=== PATIENT | male | born 1965 | race African-American/Black ===

== ENCOUNTER 2023-08-30 19:41 | Inpatient (IN) | payer BC ==
[~2023-08-30] VITALS: Ht 177.8 cm; Wt 167.8 kg
[2023-08-30 20:45] VITALS: BP_SYST 188; PULSE 95; RESP 18; TEMP 97.4; O2SAT 95
[2023-08-30 21:07] LABS: BASOPHILS % (AUTO) 0.4 % (0.0-2.0); EOSINOPHILS # (AUTO) 0.2 K/uL (0.0-0.4); EOSINOPHILS % (AUTO) 1.7 % (0.0-4.0); HEMATOCRIT 43.1 % (36-54); HEMOGLOBIN 13.4 g/dL (14.0-18.0); LYMPHOCYTES # (AUTO) 1.4 K/uL (1.0-5.5); LYMPHOCYTES % (AUTO) 14.5 % (20.5-51.5); MEAN CORPUSCULAR HEMOGLOBIN 27 pg (27-31); MEAN CORPUSCULAR HGB CONC 31 % (32-36); MEAN CORPUSCULAR VOLUME 87 fL (79.0-98.0); MONOCYTES # (AUTO) 0.5 K/uL (0.0-1.0); MONOCYTES % (AUTO) 5.1 % (1.7-9.3); NEUTROPHILS # (AUTO) 7.5 K/uL (1.8-7.7); NEUTROPHILS % (AUTO) 78.3 % (40.0-70.0); PLATELET COUNT (AUTO) 261 K/uL (130-430); RED BLOOD CELL COUNT(AUTO) 4.97 MIL/uL (4.2-6.2); RED CELL DISTRIBUTION WIDTH 15.3 % (9.0-15.0); WHITE BLOOD COUNT (AUTO) 9.6 K/uL (4.8-10.8)
[2023-08-30 21:38] LABS: ALANINE AMINOTRANSFERASE 45 U/L (12-78); ANION GAP 1 (5-15); ASPARTATE AMINOTRANSFERASE 31 U/L (10-37); CALCIUM 9.1 mg/dL (8.4-11.0); CARBON DIOXIDE 33 mmol/L (23-29); CHLORIDE 102 mmol/L (98-107); CREATININE 1.18 mg/dL (0.55-1.30); GFR AFRICAN AMERICAN 82 mL/min (>90); GLUCOSE 196 mg/dL (74-106); POTASSIUM 5.1 mmol/L (3.5-5.1); SODIUM SERUM 136 mmol/L (136-145); TOTAL PROTEIN, SERUM 6.8 g/dL (6.4-8.3); UREA NITROGEN, BLOOD 16 mg/dL (8-21)
[2023-08-30 21:45] LABS: GFR NON AFRICAN-AMERICAN 68 mL/min (>90)
[2023-08-30] MEDS ORDERED: FUROSEMIDE 40 MG/4 ML VIAL IVP ONE (23:00)
[2023-08-30] MEDS ORDERED: LABETALOL HCL 20 MG/4 ML CARTRIDGE IVP ONE (23:00)
[2023-08-31] VITALS (7 sets, daily range): BP systolic 146–179; PULSE 74–91; RESP 16–20; TEMP 96.6–98.4; O2SAT 92–96
[2023-08-31] MEDS ORDERED: INSULIN REGULAR, HUMAN 100 UNITS/ML, 3 ML VIAL (humuLIN R) SUBCUT PRN (01:00)
[2023-08-31] MEDS ORDERED: FLU VACC QS2023-24(6MOS UP)/PF 0.5 ML/SYR SYRINGE I.M. PRN (03:45)
[2023-08-31 05:43] LABS: BASOPHILS % (AUTO) 0.2 % (0.0-2.0); CALCIUM 9.2 mg/dL (8.4-11.0); CREATININE 1.24 mg/dL (0.55-1.30); EOSINOPHILS # (AUTO) 0.1 K/uL (0.0-0.4); EOSINOPHILS % (AUTO) 1.1 % (0.0-4.0); HEMATOCRIT 41.1 % (36-54); HEMOGLOBIN 12.8 g/dL (14.0-18.0); LYMPHOCYTES # (AUTO) 1.1 K/uL (1.0-5.5); LYMPHOCYTES % (AUTO) 11.8 % (20.5-51.5); MEAN CORPUSCULAR HEMOGLOBIN 27 pg (27-31); MEAN CORPUSCULAR HGB CONC 31 % (32-36); MEAN CORPUSCULAR VOLUME 85 fL (79.0-98.0); MONOCYTES # (AUTO) 0.5 K/uL (0.0-1.0); MONOCYTES % (AUTO) 5.2 % (1.7-9.3); NEUTROPHILS # (AUTO) 7.7 K/uL (1.8-7.7); NEUTROPHILS % (AUTO) 81.7 % (40.0-70.0); PLATELET COUNT (AUTO) 252 K/uL (130-430); POTASSIUM 4.4 mmol/L (3.5-5.1); RED BLOOD CELL COUNT(AUTO) 4.82 MIL/uL (4.2-6.2); RED CELL DISTRIBUTION WIDTH 15.4 % (9.0-15.0); WHITE BLOOD COUNT (AUTO) 9.4 K/uL (4.8-10.8)
[2023-08-31] MEDS ORDERED: MUPIROCIN 2% TOPICAL OINTMENT 22 GM NS PRN (07:15)
[2023-08-31] MEDS ORDERED: MORPHINE 2 MG/ML INJ. SYRINGE IVP PRN ×2 (07:15)
[2023-08-31] MEDS ORDERED: DEXTROSE 50% JECT 50 ML DISP.SYRIN IVP PRN (07:15)
[2023-08-31] MEDS ORDERED: POTASSIUM CHLORIDE 20 MEQ TAB.PRT.SR PO PRN (07:15)
[2023-08-31] MEDS ORDERED: ZOLPIDEM TARTRATE 5 MG TABLET PO PRN (07:15)
[2023-08-31] MEDS ORDERED: ONDANSETRON HCL 4 MG/2 ML VIAL IVP PRN (07:15)
[2023-08-31] MEDS ORDERED: NALOXONE HCL 0.4 MG/ML AMP (NARCAN) IVP PRN ×2 (07:15)
[2023-08-31] MEDS ORDERED: LORazepam 2 MG/ML VIAL IVP PRN (07:15)
[2023-08-31] MEDS ORDERED: DOCUSATE SODIUM 100 MG CAPSULE PO PRN (07:15)
[2023-08-31] MEDS ORDERED: MAGNESIUM SULFATE 50 ML IV PRN (07:15)
[2023-08-31] MEDS ORDERED: ACETAMINOPHEN 325 MG TABLET PO PRN ×3 (07:15→08:45)
[2023-08-31] MEDS: FUROSEMIDE 40 MG/4 ML VIAL IVP SCH (09:05)
[2023-08-31] MEDS: METOPROLOL TARTRATE 25 MG TABLET PO SCH ×2 (09:06→20:31)
[2023-08-31] MEDS: LISINOPRIL 10 MG TABLET (PRINIVIL) PO SCH ×2 (09:06→20:30)
[2023-08-31] MEDS: HEPARIN SODIUM,PORCINE 5,000 UNITS/ML VIAL SUBCUT SCH ×2 (09:07→20:32)
[2023-08-31] MEDS: INSULIN LISPRO SLIDING SCALE 100 UNITS/ML, 3 ML VIAL (humaLOG) SUBCUT PRN ×2 (11:26→20:40)
[2023-08-31] MEDS ORDERED: BALSAM PERU/CASTOR OIL 56.7 GM OINT...G. TP SCH (11:45)
[2023-08-31] MEDS ORDERED: BALSAM PERU/CASTOR OIL 56.7 GM OINT...G. TP ONE (12:00)
[2023-08-31 13:48] LABS: BILIRUBIN,URINE NEGATIVE (NEGATIVE); BLOOD, URINE NEGATIVE (NEGATIVE); CLARITY/URINE CLEAR (CLEAR); COLOR,URINE YELLOW (YELLOW); GLUCOSE,URINE NEGATIVE (NEGATIVE); KETONES,URINE NEGATIVE (NEGATIVE); LEUKOCYTE ESTERASE ,URINE NEGATIVE (NEGATIVE); NITRITE, URINE NEGATIVE (NEGATIVE); PH,URINE 6.5 (5.0-8.0); PROTEIN URINE NEGATIVE (NEGATIVE); UROBILINOGEN,URINE 0.2 (0.2-1.0)
[2023-08-31] MEDS: ceFAZolin SODIUM 2 GM in D5W 100 ML IV SCH ×2 (15:04→21:17)
[2023-09-01 00:05] VITALS: BP_SYST 146; PULSE 82; RESP 20; TEMP 97.7; O2SAT 95
[2023-09-01] MEDS: ceFAZolin SODIUM 2 GM in D5W 100 ML IV SCH (05:35)
[2023-09-01 06:08] LABS: BASOPHILS % (AUTO) 0.1 % (0.0-2.0); EOSINOPHILS # (AUTO) 0.2 K/uL (0.0-0.4); HEMATOCRIT 40.2 % (36-54); HEMOGLOBIN 12.6 g/dL (14.0-18.0); LYMPHOCYTES # (AUTO) 1.2 K/uL (1.0-5.5); LYMPHOCYTES % (AUTO) 13.7 % (20.5-51.5); MEAN CORPUSCULAR HEMOGLOBIN 27 pg (27-31); MEAN CORPUSCULAR HGB CONC 31 % (32-36); MEAN CORPUSCULAR VOLUME 86 fL (79.0-98.0); MONOCYTES # (AUTO) 0.6 K/uL (0.0-1.0); MONOCYTES % (AUTO) 6.8 % (1.7-9.3); NEUTROPHILS # (AUTO) 6.6 K/uL (1.8-7.7); NEUTROPHILS % (AUTO) 77.4 % (40.0-70.0); PLATELET COUNT (AUTO) 234 K/uL (130-430); RED CELL DISTRIBUTION WIDTH 15.5 % (9.0-15.0); WHITE BLOOD COUNT (AUTO) 8.5 K/uL (4.8-10.8)
[2023-09-01 06:22] LABS: CALCIUM 9.1 mg/dL (8.4-11.0); CREATININE 1.09 mg/dL (0.55-1.30); POTASSIUM 3.8 mmol/L (3.5-5.1)
[2023-09-01 07:55] VITALS: BP_SYST 139; PULSE 85; RESP 16; TEMP 97.2; O2SAT 94
[2023-09-01 08:00] VITALS: O2SAT 94
[2023-09-01] MEDS: METOPROLOL TARTRATE 25 MG TABLET PO SCH (08:32)
[2023-09-01] MEDS: LISINOPRIL 10 MG TABLET (PRINIVIL) PO SCH (08:32)
[2023-09-01] MEDS: HEPARIN SODIUM,PORCINE 5,000 UNITS/ML VIAL SUBCUT SCH (08:34)
[2023-09-01] MEDS: FUROSEMIDE 40 MG/4 ML VIAL IVP SCH (08:35)
[2023-09-01] MEDS ORDERED: METF-380 PO (08:38)
[2023-09-01] MEDS ORDERED: LISI20TA30 PO (08:38)
[2023-09-01] MEDS ORDERED: FURO-149 PO (08:38)
[2023-09-01] MEDS ORDERED: ASPI-1393 PO (08:38)
[2023-09-01] MEDS ORDERED: LIP20 PO (08:38)
[2023-09-01] MEDS ORDERED: CARV12.548 PO (08:38)
[2023-09-01] MEDS ORDERED: SITA100T11 PO (08:38)
[2023-09-01] MEDS ORDERED: CARVEDILOL 12.5 MG TABLET (COREG) PO SCH (09:00)
[2023-09-01] MEDS ORDERED: BALSAM PERU/CASTOR OIL 56.7 GM OINT...G. TP SCH (09:00)
[2023-09-01 09:01] LABS: CHOLESTEROL 99 mg/dL (<200); HDL CHOLESTEROL 30 mg/dL (>45); TRIGLYCERIDES 58 mg/dL (30-150)
[2023-09-01 11:56] VITALS: BP_SYST 124; PULSE 74; RESP 18; TEMP 98; O2SAT 97
[2023-09-01 12:00] VITALS: BP_SYST 124; PULSE 74; RESP 16; TEMP 97; O2SAT 98
== END 2023-09-01 14:15 | disposition home or self-care (01) | DRG 602 ==
LOC: SED 19:41 → STU 08-31 00:58
PROVIDERS: ADMIT General Practice; ATTEND General Practice
DX: L03.116 Cellulitis of left lower limb (principal); I50.43 Acute on chronic combined systolic (congestive) and diastolic (congestive) heart failure; Z68.43 Body mass index [BMI] 50.0-59.9, adult; E11.621 Type 2 diabetes mellitus with foot ulcer; I11.0 Hypertensive heart disease with heart failure; E66.01 Morbid (severe) obesity due to excess calories; T25.022A Burn of unspecified degree of left foot, initial encounter; S91.302A Unspecified open wound, left foot, initial encounter; I25.5 Ischemic cardiomyopathy; L97.529 Non-pressure chronic ulcer of other part of left foot with unspecified severity; E11.65 Type 2 diabetes mellitus with hyperglycemia; X58.XXXA Exposure to other specified factors, initial encounter; Y93.89 Activity, other specified; Y92.89 Other specified places as the place of occurrence of the external cause; Y99.8 Other external cause status; Z91.148 Patient's other noncompliance with medication regimen for other reason; Z91.81 History of falling
CPT/HCPCS: 36415; 71045; 80048; 80053; 80061; 81001; 81003; 82962; 83037; 83735; 83880; 84443; 84484; 85025; 85379; 93005; 93306; 93970; 96374; 96375; 99285; G0378; J1644; J1940; J7060